=== PATIENT | male | born 1955 | race Caucasian/White ===

== ENCOUNTER 2021-11-27 13:32 | Inpatient (IN) | payer MEDICARE, MEDICAID ==
[~2021-11-27] VITALS: Ht 175.3 cm; Wt 88.5 kg
[2021-11-27 15:10] LABS: HEMOGLOBIN 13.9 gm/dl (14.0-17.5); RED BLOOD COUNT 4.62 M/UL (4.20-5.50); WHITE BLOOD COUNT 9.6 K/UL (4.5-11.0)
[2021-11-27 15:36] LABS: BUN/CREATININE RATIO 10 (0-10)
[2021-11-27] MEDS ORDERED: GABAPENTIN800 MG PO (18:56)
[2021-11-27] MEDS ORDERED: ALLOPURINOL100 MG PO (18:57)
[2021-11-27] MEDS ORDERED: AMLODIPINE BESY10 MG PO (18:57)
[2021-11-27] MEDS ORDERED: PROAIR HFA8.5 GM INH (18:57)
[2021-11-27] MEDS ORDERED: HYDROCODON-ACE1 EAC6 PO (18:57)
[2021-11-27] MEDS ORDERED: BUSPIRONE HCL5 MG PO (18:58)
[2021-11-27] MEDS ORDERED: METFORMIN HCL1000 MG PO (18:58)
[2021-11-27] MEDS ORDERED: CHLORTHALIDONE25 MG PO (18:59)
[2021-11-27] MEDS ORDERED: METOPROLOL SUC100 MG PO (18:59)
[2021-11-27] MEDS ORDERED: OMEPRAZOLE40 MG PO (18:59)
[2021-11-27] MEDS ORDERED: MULTIPLE VITAM1 EAC1 PO (18:59)
[2021-11-28 05:49] LABS: HEMOGLOBIN 12.3 gm/dl (14.0-17.5); WHITE BLOOD COUNT 10.2 K/UL (4.5-11.0)
[2021-11-28 05:53] LABS: RED BLOOD COUNT 4.15 M/UL (4.20-5.50)
[2021-11-28 06:58] LABS: BUN/CREATININE RATIO 12 (0-10)
[2021-11-29 02:13] LABS: HEMOGLOBIN 11.6 gm/dl (14.0-17.5); RED BLOOD COUNT 3.93 M/UL (4.20-5.50); WHITE BLOOD COUNT 7.9 K/UL (4.5-11.0)
[2021-11-29 02:40] LABS: BUN/CREATININE RATIO 11 (0-10)
[2021-11-29] MEDS ORDERED: LEVOFLOXACIN750 MG PO (13:03)
--- NOTE | 2021-11-29 13:06 | NUR ---
PATIENT'S OXYGEN SATURATION DROPPED TO 78% ON ROOM AIR. OXYGEN REAPPLIED AND INCREASED TO 90%.
[2021-12-01 16:12] LABS: ORGANISM ID Not indicated. (.); SPECIMEN SOURCE Urine (.); STREPTOCOCCUS PNEUMONIAE AG Negative (Negative)
[2021-12-01 16:12] LABS: ORGANISM ID Not indicated. (.); SPECIMEN SOURCE Urine (.); STREPTOCOCCUS PNEUMONIAE AG Negative (Negative)
== END 2021-11-29 15:40 | disposition home or self-care (01) | DRG 193 ==
LOC: ER1 13:32 → CDU 18:04 → M/S 18:04
PROVIDERS: Family Medicine; ADMIT Internal Medicine
DX: J18.0 Bronchopneumonia, unspecified organism (principal); J96.01 Acute respiratory failure with hypoxia; E11.9 Type 2 diabetes mellitus without complications; I10 Essential (primary) hypertension; E78.5 Hyperlipidemia, unspecified; M10.9 Gout, unspecified; Z96.642 Presence of left artificial hip joint; Z87.891 Personal history of nicotine dependence; Z83.3 Family history of diabetes mellitus; Z90.49 Acquired absence of other specified parts of digestive tract
CPT/HCPCS: 0240U; 36415; 36600; 71045; 80048; 80053; 82550; 82553; 82803; 82962; 83036; 83605; 83690; 83735; 83880; 84484; 85025; 85379; 86140; 87040; 87081; 87278; 87899; 93005; 94640; 94664; 94760; 96374; 99285; J0456; J0696; J1650; J7030; Q9967

== ENCOUNTER → 2021-12-19 | Outpatient (CLI) | payer MEDICARE ==
[~2021-12-19] MED LIST: ALLOPURINOL100 MG PO; AMLODIPINE BESY10 MG PO; BUSPIRONE HCL5 MG PO; CHLORTHALIDONE25 MG PO; GABAPENTIN800 MG PO; HYDROCODON-ACE1 EAC6 PO; LEVOFLOXACIN750 MG PO; METFORMIN HCL1000 MG PO; METOPROLOL SUC100 MG PO; MULTIPLE VITAM1 EAC1 PO; OMEPRAZOLE40 MG PO; PROAIR HFA8.5 GM INH
== END ==
LOC: RAD 13:53
DX: J15.9 Unspecified bacterial pneumonia (principal); J21.9 Acute bronchiolitis, unspecified
CPT/HCPCS: 71046

== ENCOUNTER → 2022-01-15 | Outpatient (CLI) | payer MEDICARE | LOC: HEART 5 08:00 | DX: I50.33 Acute on chronic diastolic (congestive) heart failure (principal); I51.7 Cardiomegaly | CPT/HCPCS: 93306 ==